=== PATIENT | female | born 1990 ===

== ENCOUNTER 2017-03-19 17:52 | Emergency (ER) | payer SELFPAY ==
[2017-03-19 18:00] VITALS: BMI 31.0
[2017-03-19 18:04] VITALS: BP 115/74; PULSE 94; RESP 16; TEMP 99; O2SAT 98
--- NOTE | 2017-03-19 20:08 | ED PDOC ---
Arrival/HPI - General Chief Complaint: Finger,Hand,&Wrist Time Seen by Provider: 03/19/17 18:55 Historian: Patient - History of Present Illness Narrative History of Present Illness (Text): 03/19/17 20:16 26yr old female with right wrist pain s/p injury. pt states yesterday she was pulling a heavy object with her right wrist and developed pain in the right wrist. No medications have been taken for pain at home. Patient is complaining of pain along the volar aspect of the entire wrist. She denies numbness weakness or tingling in the extremities. Patient complaining of pain with range of motion of the wrist. Patient states pain worsens today. Symptom Onset: Gradual Symptom Course: Worsening Quality: Aching Severity Level: 5 Past Medical History - Provider Review Nursing Documentation Reviewed: Yes - Travel History Have you recently traveled outside [place] w/in the past 3 mons?: No - Infectious Disease Hx of Infectious Diseases: None - Tetanus Immunization Tetanus Immunization: Unknown - Cardiac Hx Cardiac Disorders: No - Pulmonary Hx Asthma: Yes - Neurological Hx Neurological Disorder: No - HEENT Hx HEENT Disorder: No - Renal Hx Renal Disorder: No - Endocrine/Metabolic Hx Endocrine Disorders: No - Hematological/Oncological Hx Blood Disorders: No - Integumentary Hx Dermatological Disorder: No - Gastrointestinal Hx Gastrointestinal Disorders: No - Genitourinary/Gynecological Hx Genitourinary Disorders: No - Psychiatric Hx Anxiety: Yes Hx Depression: Yes Hx Substance Use: No - Surgical History Hx Cholecystectomy: Yes - Anesthesia Hx Anesthesia: Yes Hx Anesthesia Reactions: No Family/Social History - Physician Review Nursing Documentation Reviewed: Yes Family/Social History: Unknown Family HX Smoking Status: Light Smoker < 10 Cigarettes Daily Hx Alcohol Use: No Hx Substance Use: No Allergies/Home Meds Allergies/Adverse Reactions: Allergies No Known Allergies Allergy (Verified 06/21/16 11:50) Review of Systems - Review of Systems Constitutional: absent: Fatigue, Fevers Respiratory: absent: SOB, Cough Cardiovascular: absent: Chest Pain, Palpitations Gastrointestinal: absent: Abdominal Pain, Nausea, Vomiting Musculoskeletal: Arthralgias (Right wrist pain) Skin: absent: Rash, Pruritis Neurological: absent: Headache, Dizziness Psychiatric: absent: Anxiety, Depression Physical Exam Vital Signs Reviewed: Yes Vital Signs Temp Pulse Resp BP Pulse Ox 03/19/17 17:52 99 F 94 H 16 115/74 98 Temperature: Afebrile Blood Pressure: Normal Pulse: Regular Respiratory Rate: Normal Appearance: Positive for: Well-Appearing, Non-Toxic, Comfortable Pain Distress: None Mental Status: Positive for: Alert and Oriented X 3 - Systems Exam Head: Present: Atraumatic Mouth: Present: Moist Mucous Membranes Neck: Present: Normal Range of Motion Respiratory/Chest: Present: Clear to Auscultation, Good Air Exchange. No: Respiratory Distress, Accessory Muscle Use Cardiovascular: Present: Regular Rate and Rhythm, Normal S1, S2. No: Murmurs Upper Extremity: Present: NORMAL PULSES, Tenderness (Right wrist: There is tenderness noted over the volar aspect of the wrist. There is limited ROM of the wrist due to pain. No snuffbox tenderness. Sensation and distal pulses intact. Full range of motion of the hand with pain. Refill less than 2 no erythema no edema no ecchymosis. No warmth), Neurovascularly Intact, Capillary Refill < 2s. No: Normal ROM, Swelling, Erythema, Deformity Medical Decision Making ED Course and Treatment: 03/19/17 21:22 Patient nontoxic well-appearing in no distress with stable vital signs X-rays of the right wrist: No fracture motrin po Patient placed in Velcro volar splint. I discussed all results with patient advised to followup with the orthopedist for the next 2 days. Return if symptoms worsen persist or new symptoms develop i advised the patient that although the xrays show no fracture; there is still a possibility for ligamentous or tendon injury the patient must see the orthopedist for further evaluation. Patient verbalizes understanding of discharge instructions and need for immediate followup. Impression: Wrist pain Motrin every 6 hours as needed for pain He was wrist splint Rest, ice, compression, elevation Followup with the orthopedist within the next 2 days Followup with primary care physician within the next 2 days Return if any other concerning symptoms develop - RAD Interpretation Radiology Orders: 03/19/17 18:55 WRIST, RIGHT 3 VIEWS [RAD] Stat - Medication Orders Current Medication Orders: Discontinued Medications Ketorolac Tromethamine (Toradol) 60 mg IM STAT STA Stop: 03/19/17 18:56 Last Admin: 03/19/17 19:08 Dose: 60 mg Disposition/Present on Arrival - Present on Arrival Any Indicators Present on Arrival: No History of DVT/PE: No History of Uncontrolled Diabetes: No Urinary Catheter: No History of Decub. Ulcer: No History Surgical Site Infection Following: None - Disposition Have Diagnosis and Disposition been Completed?: Yes Diagnosis: Wrist pain Disposition: HOME/ ROUTINE Disposition Time: 19:40 Patient Plan: Discharge Condition: GOOD Discharge Instructions (ExitCare): Wrist Injury (ED), Arthralgia (ED) Additional Instructions: Motrin every 6 hours as needed for pain Use wrist splint Rest, ice, compression, elevation Followup with the orthopedist within the next 2 days Followup with primary care physician within the next 2 days Return if any other concerning symptoms develop Prescriptions: Ibuprofen [Motrin] 600 mg PO Q6H PRN #20 tab PRN Reason: pain/fever reduction Referrals: Vipul Ortiz III, MD [Medical Doctor] - Follow up with primary [facility] [place] [Outside] - Follow up with primary Yelena Bishop MD [Staff Provider] - Follow up with primary Forms: [employer] ([place]), WORK NOTE
--- NOTE | 2017-03-20 12:37 | RAD ---
PROCEDURE: Right Wrist Radiographs. HISTORY: wrist injury COMPARISON: None. FINDINGS: BONES: Normal. No fracture. JOINTS: Normal. No dislocation. SOFT TISSUES: Normal. OTHER FINDINGS: None. IMPRESSION: No evidence of acute displaced fracture nor dislocation. If symptoms persist or occult fracture suspected clinically recommend repeat radiographs in 5-10 days as most fractures should become radiographically evident in this timeframe. .
== END 2017-03-19 20:06 | disposition home or self-care (01) ==
LOC: ED 17:52
DX: M25.531 Pain in right wrist (principal)
CPT/HCPCS: 29260; 73110; 96372; 99283; J1885

== ENCOUNTER 2017-05-03 04:20 | Emergency (ER) | payer MEDICAID ==
[2017-05-03 04:21] VITALS: BMI 31.0
[2017-05-03] MEDS ORDERED: Sodium Chloride 0.9% 1,000 ML IV STA (04:37)
[2017-05-03 04:38] VITALS: RESP 18; TEMP 98.3; O2SAT 99
--- NOTE | 2017-05-03 04:41 | ED PDOC ---
Arrival/HPI - General Historian: Patient - History of Present Illness Time/Duration: Prior to Arrival Symptom Onset: Sudden Symptom Course: Unchanged Quality: Stabbing Severity Level: Moderate, Severe Activities at Onset: Rest Context: Home <Dinora Nettles - Last Filed: 05/03/17 05:05> <Wilmer Grajeda - Last Filed: 05/03/17 19:18> - General Chief Complaint: Abdominal Pain Time Seen by Provider: 05/03/17 04:27 - History of Present Illness Narrative History of Present Illness (Text): 05/03/17 04:38 26F w/PMH sig for asthma, depression/anxiety evaluated for abdominal pain x 1 hr. Pain is suprapubic, radiates to mid & left low back, sharp/stabbing, constant, severe, woke her up from sleep. Denies taking anything for pain at home. Reports back pain started at 9pm on day prior to evaluation. Admits to nausea, urinary frequency, urinary urgency, dysuria and diarrhea. Denies emesis , F & C, [place], recent URI symptoms, chest pain, SOB, other complaints. PMH: asthma, depression anxiety, hx UTIs PSH: Cholecystectomy, x 3 All: NKDA SH: Denies ETOH or illicit drug use, admits to tobacco use #3 /day x 5 yrs PMD: Denies LMP: September 2010, on Dia (Dinora Nettles) Past Medical History - Provider Review Nursing Documentation Reviewed: Yes - Infectious Disease Hx of Infectious Diseases: None - Tetanus Immunization Tetanus Immunization: Unknown - Cardiac Hx Cardiac Disorders: No - Pulmonary Hx Asthma: Yes - Neurological Hx Neurological Disorder: No - HEENT Hx HEENT Disorder: No - Renal Hx Renal Disorder: No - Endocrine/Metabolic Hx Endocrine Disorders: No - Hematological/Oncological Hx Blood Disorders: No - Integumentary Hx Dermatological Disorder: No - Gastrointestinal Hx Gastrointestinal Disorders: No - Genitourinary/Gynecological Hx Genitourinary Disorders: No - Psychiatric Hx Anxiety: Yes Hx Depression: Yes Hx Substance Use: No - Surgical History Hx Cholecystectomy: Yes - Anesthesia Hx Anesthesia: Yes Hx Anesthesia Reactions: No <Dinora Nettles - Last Filed: 05/03/17 05:05> Family/Social History - Physician Review Nursing Documentation Reviewed: Yes Family/Social History: No Known Family HX Smoking Status: Light Smoker < 10 Cigarettes Daily Hx Alcohol Use: No Hx Substance Use: No <Dinora Nettles - Last Filed: 05/03/17 05:05> Allergies/Home Meds <Dinora Nettles - Last Filed: 05/03/17 05:05> <Wilmer Grajeda - Last Filed: 05/03/17 19:18> Allergies/Adverse Reactions: Allergies No Known Allergies Allergy (Verified 06/21/16 11:50) Review of Systems - Physician Review All systems were reviewed & negative as marked: Yes - Review of Systems Constitutional: Normal. absent: Fevers Eyes: Normal. absent: Vision Changes ENT: Normal. absent: Rhinorrhea Respiratory: Normal. absent: SOB Cardiovascular: Normal. absent: Chest Pain Gastrointestinal: Abdominal Pain, Diarrhea, Nausea. absent: Normal, Constipation, Vomiting, Hematochezia, Hematemesis Genitourinary Female: Dysuria, Frequency, Urine Output Changes. absent: Normal , Hematuria, Vaginal Discharge Musculoskeletal: Back Pain. absent: Normal Skin: Normal. absent: Rash Neurological: Normal. absent: Headache Endocrine: Polyuria. absent: Normal <Dinora Nettles - Last Filed: 05/03/17 05:05> Physical Exam Appearance: Positive for: Well-Appearing, Comfortable Pain Distress: Mild Mental Status: Positive for: Alert and Oriented X 3 - Systems Exam Head: Present: Atraumatic, Normocephalic Extroacular Muscles: Present: EOMI Conjunctiva: Present: Normal Mouth: Present: Moist Mucous Membranes Nose (External): Present: Atraumatic Neck: Present: Normal Range of Motion Respiratory/Chest: Present: Clear to Auscultation, Good Air Exchange. No: Respiratory Distress, Accessory Muscle Use Cardiovascular: Present: Regular Rate and Rhythm, Normal S1, S2. No: Murmurs Abdomen: Present: Tenderness (RLQ, epigastric), Normal Bowel Sounds, Guarding ( over epigastrum, RLQ). No: Distention, Peritoneal Signs, Rebound, Scars Back: Present: Normal Inspection, Paraspinal Tenderness (Left lower back). No: CVA Tenderness Upper Extremity: Present: Normal Inspection. No: Cyanosis, Edema Lower Extremity: Present: Normal Inspection. No: Edema Neurological: Present: GCS=15, CN II-XII Intact, Speech Normal Skin: Present: Warm, Dry, Normal Color. No: Rashes Psychiatric: Present: Alert, Oriented x 3, Normal Insight, Normal Concentration <Dinora Nettles - Last Filed: 05/03/17 05:05> Vital Signs Temp Pulse Resp BP Pulse Ox 05/03/17 07:38 72 18 106/62 99 05/03/17 04:38 98.3 F 83 18 135/83 99 Medical Decision Making <Dinora Nettles - Last Filed: 05/03/17 05:05> - Transfer of Care Patient signed out to Dr:: nohemi adame and dispo <Wilmer Grajeda - Last Filed: 05/03/17 19:18> ED Course and Treatment: 05/03/17 04:44 Pt seen/evaluted, case DW ED attending, will evaluate for appendicitis vs. cystitis vs. nephrolithiasis (Dinora Nettles) - Lab Interpretations Lab Results: 05/03/17 04:50 05/03/17 04:50 Lab Results 05/03/17 04:50: Sodium 140, Potassium 4.1, Chloride 106, Carbon Dioxide 22, Anion Gap 16, BUN 14, Creatinine 0.6 L, Est GFR ( Amer) > 60, Est GFR ( Non-Af Amer) > 60, Random Glucose 99, Calcium 9.6, Total Bilirubin 0.5, AST 22, ALT 25, Alkaline Phosphatase 71, Total Protein 7.1, Albumin 4.3, Globulin 2.7, Albumin/Globulin Ratio 1.6, Lipase 76 05/03/17 04:50: Urine Color Yellow, Urine Appearance Sl cloudy, Urine pH 6.5, Ur Specific [place] 1.020, Urine Protein Negative, Urine Glucose (UA) Negative, Urine Ketones Negative, Urine Blood Negative, Urine Nitrate Negative, Urine Bilirubin Negative, Urine Urobilinogen 1.0 H, Ur Leukocyte Esterase Trace H, Urine RBC 0 - 2, Urine WBC 1 - 3, Ur Epithelial Cells 1 - 3, Urine Bacteria Trace 05/03/17 04:50: WBC 11.6 H, RBC 4.58, Hgb 14.5, Hct 41.5, MCV 90.6, MCH 31.7, MCHC 34.9, RDW 12.2, Plt Count 298, MPV 10.3, Gran % 66.4, Lymph % (Auto) 25.4, [place] % (Auto) 6.3 H, Eos % (Auto) 1.6, Baso % (Auto) 0.3, Gran # 7.69 H, Lymph # 2.9, [place] # 0.7 H, Eos # 0.2, Baso # 0.03 - RAD Interpretation Radiology Orders: 05/03/17 05:02 ABD & PELVIS IV CONTRAST ONLY [CT] Stat 05/03/17 06:23 TRANSVAGINAL [US] Stat - Medication Orders Current Medication Orders: Discontinued Medications Hydromorphone HCl (Dilaudid) 0.5 mg IVP STAT STA Stop: 05/03/17 05:14 Last Admin: 05/03/17 05:26 Dose: 0.5 mg MAR Pain Assessment Document 05/03/17 05:26 SS (Rec: 05/03/17 05:26 SS [id number]) Pain Reassessment Is this a pain reassessment? Yes Sleep Is patient sleeping during reassessment? No Presence of Pain Presence of Pain Yes Pain Scale Used Pain Scale Used Numeric Location Left, Right or Bilateral Right Upper or Lower Lower Pain Location Body Site Abdomen Description Description Constant Intensity of Pain at present 9 IVP Administration Document 05/03/17 05:26 SS (Rec: 05/03/17 05:26 SS [id number]) Charges for Administration # of IVP Administrations 1 Sodium Chloride (Sodium Chloride 0.9%) 1,000 mls @ 999 mls/hr IV .Q1H1M STA Stop: 05/03/17 05:37 Last Admin: 05/03/17 04:58 Dose: 999 mls/hr eMAR Start Stop Document 05/03/17 04:58 SS (Rec: 05/03/17 04:58 SS [id number]) Intravenous Solution Start Date 05/03/17 Start Time 04:58 End Date 05/03/17 End time 05:58 Total Infusion Time 60 Ketorolac Tromethamine (Toradol) 15 mg IVP STAT STA Stop: 05/03/17 04:38 Last Admin: 05/03/17 04:58 Dose: 15 mg MAR Pain Assessment Document 05/03/17 04:58 SS (Rec: 05/03/17 04:59 SS [id number]) Pain Reassessment Is this a pain reassessment? No Sleep Is patient sleeping during reassessment? 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 / has examined the patient and agrees with the treatment plan. <Wilmer Grajeda - Last Filed: 05/03/17 19:18> Disposition/Present on Arrival - Present on Arrival Any Indicators Present on Arrival: No History of DVT/PE: No History of Uncontrolled Diabetes: No Urinary Catheter: No History of Decub. Ulcer: No History Surgical Site Infection Following: None <Dinora Nettles - Last Filed: 05/03/17 05:05> - Present on Arrival Any Indicators Present on Arrival: No - Disposition Have Diagnosis and Disposition been Completed?: Yes Disposition Time: 07:00 <Wilmer Grajeda - Last Filed: 05/03/17 19:18> - Disposition Diagnosis: Abdominal pain Disposition: HOME/ ROUTINE Condition: GOOD Discharge Instructions (ExitCare): Acute Abdominal Pain (ED) Additional Instructions: Please follow up with a primary doctor and with your OBGYN doctor. Return to the ER for any worsening symptoms, fever, or for any other concerns. Prescriptions: Ibuprofen [Motrin Tab] 600 mg PO Q6H PRN #10 tab PRN Reason: Pain, Moderate (4-7) [place]errals: [facility] [place] - Follow up with primary Forms: [employer] (Kiswahili), WORK NOTE
[2017-05-03 05:13] LABS: PH,URINE 6.5 (4.7-8.0); URINE BILIRUBIN NEGATIVE (NEGATIVE); URINE BLOOD NEGATIVE (NEGATIVE); URINE GLUCOSE (UA) NEGATIVE (NEGATIVE); URINE KETONE NEGATIVE (NEGATIVE); URINE LEUKOCYTE ESTERASE TRACE Leu/uL (NEGATIVE); URINE PROTEIN NEGATIVE mg/dL (<30 mg/dL)
[2017-05-03] MEDS ORDERED: HYDROmorphone 0.5 mg/0.5 ml ISec IVP STA (05:13)
[2017-05-03 05:17] LABS: BASO # 0.03 K/mm3 (0.0-2.0); BASO % 0.3 % (0.0-3.0); EOS # 0.2 (0.0-0.7); EOS % 1.6 % (1.5-5.0); GRAN # 7.69 (1.4-6.5); GRAN % 66.4 % (50.0-68.0); HEMATOCRIT 41.5 % (36.0-48.0); LYMPH # 2.9 (1.2-3.4); LYMPH % 25.4 % (22.0-35.0); MEAN CELL VOLUME 90.6 fl (80.0-105.0); MEAN CORPUSCULAR HEMOGLOBIN 31.7 pg (25.0-35.0); MEAN CORPUSCULAR HGB CONC 34.9 g/dl (31.0-37.0); MEAN PLATELET VOLUME 10.3 fl (7.0-11.0); MONO # 0.7 (0.1-0.6); MONO % 6.3 % (1.0-6.0); RED CELL DISTRIBUTION WIDTH 12.2 % (11.5-14.5); WHITE BLOOD COUNT 11.6 10^3/ul (4.5-11.0)
[2017-05-03 05:23] LABS: ALB/GLOB RATIO 1.6 (1.1-1.8); ALKALINE PHOSPHATASE 71 U/L (38-126); ALT/SGPT 25 U/L (7-56); AST/SGOT 22 U/L (14-36); BILIRUBIN,TOTAL 0.5 mg/dL (0.2-1.3); BLOOD UREA NITROGEN 14 mg/dL (7-21); CALCIUM 9.6 mg/dL (8.4-10.5); CARBON DIOXIDE 22 mmol/L (21-33); CHLORIDE 106 mmol/L (98-107); GFR AFRICAN-AMERICAN > 60; GLUCOSE,RANDOM 99 mg/dL (70-110); LIPASE 76 U/L (23-300); POTASSIUM 4.1 mmol/L (3.6-5.0); SODIUM 140 mmol/L (132-148); TOTAL PROTEIN 7.1 g/dL (5.8-8.3)
[2017-05-03] MEDS ORDERED: Iohexol 350 MG/100 ML VIAL ONE (05:38)
[2017-05-03 05:46] LABS: URINE APPEARANCE SL CLOUDY (CLEAR); URINE COLOR YELLOW (YELLOW)
[2017-05-03 05:49] LABS: URINE BACTERIA TRACE (NEG); URINE RBC 0 - 2 /hpf (0-2)
--- NOTE | 2017-05-03 06:22 | CT ---
EXAM: CT Abdomen and Pelvis With Intravenous Contrast CLINICAL HISTORY: 26 years old, female; Pain; Abdominal pain; Periumbilical; Prior surgery; Surgery date: 6+ months; Additional info: Ab pain TECHNIQUE: Axial computed tomography images of the abdomen and pelvis with intravenous contrast. All CT scans at this facility use one or more dose reduction techniques, viz.: automated exposure control; ma/kV adjustment per patient size (including targeted exams where dose is matched to indication; i.e. head); or iterative reconstruction technique. Coronal and sagittal reformatted images were created and reviewed. CONTRAST: 96 mL of OMNI 350 administered intravenously. COMPARISON: US - PELVIS ULTRASOUND 2015-07-20 11:30 FINDINGS: Lower thorax: No acute findings. ABDOMEN: Liver: Small calcification. 0.5 x 0.4 x 0.5 cm enhancing lesion. Gallbladder and bile ducts: No calcified stones. No ductal dilation. Pancreas: No ductal dilation. No mass. Spleen: No splenomegaly. Adrenals: No mass. Kidneys and ureters: No mass. No hydronephrosis. Stomach and bowel: No definite mural thickening. No obstruction. Appendix: Normal caliber. No inflammation. PELVIS: Bladder: Unremarkable. Reproductive: IUD. ABDOMEN and PELVIS: Intraperitoneal space: No significant fluid collection. No free air. Bones/joints: No acute fracture. Soft tissues: Tiny umbilical hernia containing fat. Vasculature: Unremarkable. No aneurysm. Lymph nodes: No pathologically enlarged lymph nodes. IMPRESSION: 1. No definite acute intraabdominal abnormality. 2. Liver lesion, nonspecific but likely hemangioma. Followup if clinically warranted. 3. Incidental/non-acute findings are described above.
--- NOTE | 2017-05-03 07:27 | US ---
EXAM: US Pelvis, Transvaginal EXAM DATE/TIME: 05/03/2017 6:23 AM CLINICAL HISTORY: 26 years old, female; Pain; Pelvic pain; Additional info: Ab pain TECHNIQUE: Real-time transvaginal pelvic ultrasound (complete) with image documentation. Transvaginal imaging was used for better evaluation of the endometrium and adnexa. COMPARISON: CT - ABD PELVIS IV CONTRAST ONLY 2017-05-03 05:46 FINDINGS: Uterus/cervix: Uterus measures 8.8 x 4.3 x 4.9 cm. IUD centrally position. Visualized endometrium measures 1.2 cm. No myometrial mass. Right ovary: Limited visualization right ovary, measures 3.4 x 2.6 x 2.9 cm. Normal blood flow. Left ovary: Not visualized. Free fluid: No free fluid. Bladder: Empty bladder which cannot be evaluated with this probe. IMPRESSION: IUD. Nonvisualization of left ovary, otherwise unremarkable examination.
[2017-05-03 07:39] VITALS: BP 106/62; PULSE 72
--- NOTE | 2017-05-03 08:16 | ED PDOC ---
Physical Exam Vital Signs Temp Pulse Resp BP Pulse Ox 05/03/17 07:38 72 18 106/62 99 05/03/17 04:38 98.3 F 83 18 135/83 99 Medical Decision Making ED Course and Treatment: 05/03/17 07:00 Case was signed out to me by Dr. Grajeda and currently pending ultrasound report. 05/03/17 07:30 Ultrasound: Creator : JOHN ORTEGA COMPARISON: CT - ABD PELVIS IV CONTRAST ONLY 2017-05-03 05:46 FINDINGS: Uterus/cervix: Uterus measures 8.8 x 4.3 x 4.9 cm. IUD centrally position. Visualized endometrium measures 1.2 cm. No myometrial mass. Right ovary: Limited visualization right ovary, measures 3.4 x 2.6 x 2.9 cm. Normal blood flow. Left ovary: Not visualized. Free fluid: No free fluid. Bladder: Empty bladder which cannot be evaluated with this probe. IMPRESSION: IUD. Nonvisualization of left ovary, otherwise unremarkable examination. 05/03/17 07:50 On evaluation patient is resting quietly playing on iPad. patient is in no distress and reports pain is mainly on the right lower abdomen side. Results/ plan was discussed with patient. Follow up and return precautions advised. - Lab Interpretations Lab Results: 05/03/17 04:50 05/03/17 04:50 Lab Results 05/03/17 04:50: Sodium 140, Potassium 4.1, Chloride 106, Carbon Dioxide 22, Anion Gap 16, BUN 14, Creatinine 0.6 L, Est GFR ( Amer) > 60, Est GFR ( Non-Af Amer) > 60, Random Glucose 99, Calcium 9.6, Total Bilirubin 0.5, AST 22, ALT 25, Alkaline Phosphatase 71, Total Protein 7.1, Albumin 4.3, Globulin 2.7, Albumin/Globulin Ratio 1.6, Lipase 76 05/03/17 04:50: Urine Color Yellow, Urine Appearance Sl cloudy, Urine pH 6.5, Ur Specific [place] 1.020, Urine Protein Negative, Urine Glucose (UA) Negative, Urine Ketones Negative, Urine Blood Negative, Urine Nitrate Negative, Urine Bilirubin Negative, Urine Urobilinogen 1.0 H, Ur Leukocyte Esterase Trace H, Urine RBC 0 - 2, Urine WBC 1 - 3, Ur Epithelial Cells 1 - 3, Urine Bacteria Trace 05/03/17 04:50: WBC 11.6 H, RBC 4.58, Hgb 14.5, Hct 41.5, MCV 90.6, MCH 31.7, MCHC 34.9, RDW 12.2, Plt Count 298, MPV 10.3, Gran % 66.4, Lymph % (Auto) 25.4, [place] % (Auto) 6.3 H, Eos % (Auto) 1.6, Baso % (Auto) 0.3, Gran # 7.69 H, Lymph # 2.9, [place] # 0.7 H, Eos # 0.2, Baso # 0.03 I have reviewed the lab results: Yes - RAD Interpretation Radiology Orders: 05/03/17 05:02 ABD & PELVIS IV CONTRAST ONLY [CT] Stat 05/03/17 06:23 TRANSVAGINAL [US] Stat Clinical Laboratory Medical Director: Radiologist - Medication Orders Current Medication Orders: Discontinued Medications Hydromorphone HCl (Dilaudid) 0.5 mg IVP STAT STA Stop: 05/03/17 05:14 Last Admin: 05/03/17 05:26 Dose: 0.5 mg MAR Pain Assessment Document 05/03/17 05:26 SS (Rec: 05/03/17 05:26 SS [id number]) Pain Reassessment Is this a pain reassessment? Yes Sleep Is patient sleeping during reassessment? No Presence of Pain Presence of Pain Yes Pain Scale Used Pain Scale Used Numeric Location Left, Right or Bilateral Right Upper or Lower Lower Pain Location Body Site Abdomen Description Description Constant Intensity of Pain at present 9 IVP Administration Document 05/03/17 05:26 SS (Rec: 05/03/17 05:26 SS [id number]) Charges for Administration # of IVP Administrations 1 Sodium Chloride (Sodium Chloride 0.9%) 1,000 mls @ 999 mls/hr IV .Q1H1M STA Stop: 05/03/17 05:37 Last Admin: 05/03/17 04:58 Dose: 999 mls/hr eMAR Start Stop Document 05/03/17 04:58 SS (Rec: 05/03/17 04:58 SS [id number]) Intravenous Solution Start Date 05/03/17 Start Time 04:58 End Date 05/03/17 End time 05:58 Total Infusion Time 60 Ketorolac Tromethamine (Toradol) 15 mg IVP STAT STA Stop: 05/03/17 04:38 Last Admin: 05/03/17 04:58 Dose: 15 mg MAR Pain Assessment Document 05/03/17 04:58 SS (Rec: 05/03/17 04:59 SS [id number]) Pain Reassessment Is this a pain reassessment? No Sleep Is patient sleeping during reassessment? No Presence of Pain Presence of Pain Yes Pain Scale Used Pain Scale Used Numeric Location Left, Right or Bilateral Right Upper or Lower Lower Pain Location Body Site Abdomen Description Description Constant Intensity of Pain at present 10 Pain Behavior Grasping Site Rubbing Site IVP Administration Document 05/03/17 04:58 SS (Rec: 05/03/17 04:59 SS [id number]) Charges for Administration # of IVP Administrations 1 - Scribe Statement The provider has reviewed the documentation as recorded by the Scribe Trixie Hussein Provider Scribe Attestation: All medical record entries made by the Scribe were at my direction and personally dictated by me. I have reviewed the chart and agree that the record accurately reflects my personal performance of the history, physical exam, medical decision making, and the department course for this patient. I have also personally directed, reviewed, and agree with the discharge instructions and disposition. Disposition/Present on Arrival - Present on Arrival Any Indicators Present on Arrival: No History of DVT/PE: No History of Uncontrolled Diabetes: No Urinary Catheter: No History of Decub. Ulcer: No History Surgical Site Infection Following: None - Disposition Have Diagnosis and Disposition been Completed?: Yes Diagnosis: Abdominal pain Disposition: HOME/ ROUTINE Disposition Time: 08:24 Condition: GOOD Discharge Instructions (ExitCare): Acute Abdominal Pain (ED) Additional Instructions: Please follow up with a primary doctor and with your OBGYN doctor. Return to the ER for any worsening symptoms, fever, or for any other concerns. Prescriptions: Ibuprofen [Motrin Tab] 600 mg PO Q6H PRN #10 tab PRN Reason: Pain, Moderate (4-7) Referrals: [facility] [place] [Outside] - Follow up with primary Forms: [employer] (Portuguese), WORK NOTE
== END 2017-05-03 08:24 | disposition home or self-care (01) ==
LOC: ED 04:20
DX: R10.9 Unspecified abdominal pain (principal); F17.210 Nicotine dependence, cigarettes, uncomplicated
CPT/HCPCS: 74177; 76830; 80053; 81001; 83690; 85025; 87086; 96361; 96374; 96376; 99284; J1170; J1885; J7040; Q9967

== ENCOUNTER 2017-06-15 00:10 | Emergency (ER) | payer MEDICAID, OTHER ==
[2017-06-15 00:11] VITALS: BMI 31.0
[2017-06-15 00:43] VITALS: BP 109/73; PULSE 93; RESP 18; TEMP 98.2; O2SAT 99
--- NOTE | 2017-06-15 01:14 | ED PDOC ---
Arrival/HPI - General Chief Complaint: Upper Extremity Problem/Injury Time Seen by Provider: 06/15/17 00:46 Historian: Patient - History of Present Illness Narrative History of Present Illness (Text): 06/15/17 01:52 26 yo F presents with numbness to the distal L 2nd digit, s/p laceration with a knife which was repaired in this hospital 1 month ago. States that she did not f /u with any specialist after her visit here. Denies any redness, swelling, new trauma / injury, decrease in ROM. Has no additional complaints. Past Medical History - Provider Review Nursing Documentation Reviewed: Yes - Infectious Disease Hx of Infectious Diseases: None - Tetanus Immunization Tetanus Immunization: Unknown - Reproductive Currently : No - Cardiac Hx Cardiac Disorders: No - Pulmonary Hx Asthma: Yes - Neurological Hx Neurological Disorder: No - HEENT Hx HEENT Disorder: No - Renal Hx Renal Disorder: No - Endocrine/Metabolic Hx Endocrine Disorders: No - Hematological/Oncological Hx Blood Disorders: No - Integumentary Hx Dermatological Disorder: No - Musculoskeletal/Rheumatological Hx Musculoskeletal Disorders: No - Gastrointestinal Hx Gastrointestinal Disorders: No - Genitourinary/Gynecological Hx Genitourinary Disorders: No - Psychiatric Hx Anxiety: Yes Hx Depression: Yes Hx Substance Use: No - Surgical History Hx Section: Yes (x3) Hx Cholecystectomy: Yes - Anesthesia Hx Anesthesia: Yes Hx Anesthesia Reactions: No Hx Malignant Hyperthermia: No Family/Social History - Physician Review Nursing Documentation Reviewed: Yes Family/Social History: Unknown Family HX Smoking Status: Light Smoker < 10 Cigarettes Daily Hx Alcohol Use: No Hx Substance Use: No Allergies/Home Meds Allergies/Adverse Reactions: Allergies No Known Allergies Allergy (Verified 06/15/17 00:38) Home Medications: Home Meds Medication Instructions Recorded Confirmed Levonorgestrel [Mirena] 1 each IY CONT 06/15/17 06/15/17 Review of Systems - Review of Systems Constitutional: absent: Fatigue, Weight Change, Fevers Musculoskeletal: Other (+paresthesia to the L 2nd digit). absent: Arthralgias, Back Pain, Neck Pain Skin: Laceration. absent: Rash, Pruritis, Skin Lesions Physical Exam Vital Signs Reviewed: Yes Vital Signs Temp Pulse Resp BP Pulse Ox 06/15/17 00:38 98.2 F 93 H 18 109/73 99 06/15/17 00:11 98.6 F 70 17 110/80 100 Temperature: Afebrile Blood Pressure: Normal Pulse: Regular Respiratory Rate: Normal Appearance: Positive for: Well-Appearing, Non-Toxic, Comfortable Pain Distress: None Mental Status: Positive for: Alert and Oriented X 3 - Systems Exam Upper Extremity: Present: Normal Inspection, Normal ROM, NORMAL PULSES, Capillary Refill < 2s, Norm 2-Pt Discrimination, Other (+decrease in sensation to the distal aspect of the L 2nd digit). No: Edema, Tenderness, Swelling, Erythema, Temperature Abnormalties, Deformity Neurological: Present: GCS=15, CN II-XII Intact Skin: Present: Warm, Dry, Normal Color. No: Rashes Medical Decision Making ED Course and Treatment: 06/15/17 01:55 26 yo F presents with numbness to the distal L 2nd digit, s/p laceration with a knife which was repaired in this hospital 1 month ago. Patient advised that she must f/u with referral physician provided for further evaluation. Patient states she fully agrees with and understands discharge instructions. States that she agrees with the plan and disposition. Verbalized and repeated discharge instructions and plan. I have given the patient opportunity to ask any additional questions. - PA / MEDICAL REFERRAL COORDINATOR / Resident Statement / has reviewed & agrees with the documentation as recorded. Disposition/Present on Arrival - Present on Arrival Any Indicators Present on Arrival: No History of DVT/PE: No History of Uncontrolled Diabetes: No Urinary Catheter: No History of Decub. Ulcer: No History Surgical Site Infection Following: None - Disposition Have Diagnosis and Disposition been Completed?: Yes Diagnosis: Paresthesia Disposition: HOME/ ROUTINE Disposition Time: 01:00 Patient Plan: Discharge Condition: STABLE Discharge Instructions (ExitCare): Paresthesia (ED) Print Language: MALAWIAN Additional Instructions: You must follow up with referral physician provided for further evaluation in 2 days without fail. Referrals: Behance Cecilia Mccain, [Primary Care Provider] - Follow up with primary Volodymyr Ybarra DO [Staff Provider] - Follow up with primary Forms: [employer] (Swazi), WORK NOTE
== END 2017-06-15 01:25 | disposition home or self-care (01) ==
LOC: ED 00:10
DX: R20.2 Paresthesia of skin (principal); F17.210 Nicotine dependence, cigarettes, uncomplicated

== ENCOUNTER 2018-02-05 03:12 | Emergency (ER) | payer OTHER, MEDICAID ==
[2018-02-05 03:29] VITALS: RESP 16; TEMP 98.6; O2SAT 99
[2018-02-05 03:36] VITALS: BMI 34.0
[2018-02-05] MEDS ORDERED: Albuterol-Ipratrop 3 mg / 0.5 (3 ml) UD IH STA (03:42)
--- NOTE | 2018-02-05 03:59 | ED PDOC ---
Arrival/HPI - General Chief Complaint: Cough, Cold, Congestion Time Seen by Provider: 02/05/18 03:13 Historian: Patient - History of Present Illness Narrative History of Present Illness (Text): 02/05/18 03:34 A 27 year old female, whose past medical history includes asthma, depression and anxiety, presents to the emergency department complaining of sore throat, congestion cough, and asthma. Patient reports she use an inhaler at home and she last used her inhaler prior to arrival. Patient denies any fever, chills, chest pain, shortness of breath, nausea, vomiting, back pain, neck pain, headache, dizziness, or any other complaints. PMD: Dr. Nneka Izaguirre Time/Duration: Other (2 days ago) Symptom Onset: Gradual Symptom Course: Unchanged Context: Home Past Medical History - Provider Review Nursing Documentation Reviewed: Yes - Infectious Disease Hx of Infectious Diseases: None - Tetanus Immunization Tetanus Immunization: Unknown - Cardiac Hx Cardiac Disorders: No - Pulmonary Hx Asthma: Yes - Neurological Hx Neurological Disorder: No - HEENT Hx HEENT Disorder: No - Renal Hx Renal Disorder: No - Endocrine/Metabolic Hx Endocrine Disorders: No - Hematological/Oncological Hx Blood Disorders: No - Integumentary Hx Dermatological Disorder: No - Musculoskeletal/Rheumatological Hx Musculoskeletal Disorders: No - Gastrointestinal Hx Gastrointestinal Disorders: No - Genitourinary/Gynecological Hx Genitourinary Disorders: No - Psychiatric Hx Anxiety: Yes Hx Depression: Yes Hx Substance Use: No - Surgical History Hx Cholecystectomy: Yes - Anesthesia Hx Anesthesia: Yes Hx Anesthesia Reactions: No Hx Malignant Hyperthermia: No Family/Social History - Physician Review Nursing Documentation Reviewed: Yes Family/Social History: Unknown Family HX Smoking Status: Light Smoker < 10 Cigarettes Daily Hx Alcohol Use: No Hx Substance Use: No Allergies/Home Meds Allergies/Adverse Reactions: Allergies No Known Allergies Allergy (Verified 02/05/18 03:36) Home Medications: Home Meds Medication Instructions Recorded Confirmed Albuterol HFA [Ventolin HFA 90 1 puff INH PRN PRN 02/05/18 02/05/18 mcg/actuation (8 g)] Alprazolam [Xanax] 0.5 mg PO PRN PRN 02/05/18 02/05/18 buPROPion [Wellbutrin] 75 mg PO PRN PRN 02/05/18 02/05/18 Review of Systems - Physician Review All systems were reviewed & negative as marked: Yes - Review of Systems Constitutional: Normal. absent: Fevers, Night Sweats Eyes: Normal ENT: Sore Throat. absent: Hearing Changes, Tinnitus, TMJ Pain, Rhinorrhea, Epistaxis, Sinus Congestion Respiratory: Cough (dry cough). absent: SOB, Sputum, Wheezing Cardiovascular: absent: Chest Pain Gastrointestinal: absent: Nausea, Vomiting Musculoskeletal: absent: Back Pain, Neck Pain Skin: Normal Neurological: Normal. absent: Headache, Dizziness Physical Exam Vital Signs Reviewed: Yes Vital Signs Temp Pulse Resp BP Pulse Ox 02/05/18 05:29 98 H 16 128/77 99 02/05/18 03:29 98.6 F 103 H 16 130/75 99 Temperature: Afebrile Blood Pressure: Normal Pulse: Tachycardic Respiratory Rate: Normal Appearance: Positive for: Well-Appearing, Non-Toxic, Comfortable Pain Distress: None Mental Status: Positive for: Alert and Oriented X 3 - Systems Exam Head: Present: Atraumatic, Normocephalic Pupils: Present: PERRL Extroacular Muscles: Present: EOMI Conjunctiva: Present: Normal Mouth: Present: Moist Mucous Membranes Pharnyx: Present: ERYTHEMA Neck: Present: Normal Range of Motion Respiratory/Chest: Present: Wheezes (Scattered wheezing). No: Clear to Auscultation, Good Air Exchange, Respiratory Distress, Accessory Muscle Use, Decreased Breath Sounds, Rales, Retracting, Rhonchi, Tachypneic, Tender to Palpation Cardiovascular: Present: Regular Rate and Rhythm, Normal S1, S2. No: Murmurs Abdomen: No: Tenderness, Distention, Peritoneal Signs Back: Present: Normal Inspection Upper Extremity: Present: Normal Inspection. No: Cyanosis, Edema Lower Extremity: Present: Normal Inspection. No: Edema Neurological: Present: GCS=15, CN II-XII Intact, Speech Normal Skin: Present: Warm, Dry, Normal Color. No: Rashes Psychiatric: Present: Alert, Oriented x 3, Normal Insight, Normal Concentration Medical Decision Making ED Course and Treatment: 02/05/18 03:38 Impression: 27 year old female, whose past medical history includes asthma, depression and anxiety, presents to the emergency department complaining of sore throat, congestion cough, and asthma. on inital exam, scattered whezing. Plan: -- Chest X-ray -- Duoneb -- Prednisone Tab -- Rapid Strep -- Reassess and disposition Prior Visits: Notes and results from previous visits were reviewed. Progress Notes: 02/05/18 05:21 pt reassesed. pt states she feels no improvement. i offered her additional treatment, and lab tests, including d dimer. she declines. she is aksing for immediate dc and will return with worsening. 02/05/18 05:24 Chest X-Ray reviewed, shows no acute findings. Interpreted by me. - Lab Interpretations Lab Results: Lab Results 02/05/18 04:05: Grp A Beta Strep Ag Negative - RAD Interpretation Radiology Orders: 02/05/18 03:42 CHEST TWO VIEWS (PA/LAT) [RAD] Stat - Medication Orders Current Medication Orders: Discontinued Medications Albuterol/Ipratropium (Duoneb 3 Mg/0.5 Mg (3 Ml) Ud) 3 ml IH STAT STA Stop: 02/05/18 03:43 Last Admin: 02/05/18 03:55 Dose: 3 ml Prednisone (Prednisone Tab) 50 mg PO STAT STA Stop: 02/05/18 03:43 Last Admin: 02/05/18 04:03 Dose: 50 mg - Scribe Statement Chelsie Dean All medical record entries made by the Scribe were at my direction and personally dictated by me. I have reviewed the chart and agree that the record accurately reflects my personal performance of the history, physical exam, medical decision making, and the department course for this patient. I have also personally directed, reviewed, and agree with the discharge instructions and disposition. Disposition/Present on Arrival - Present on Arrival Any Indicators Present on Arrival: No History of DVT/PE: No History of Uncontrolled Diabetes: No Urinary Catheter: No History of Decub. Ulcer: No History Surgical Site Infection Following: None - Disposition Have Diagnosis and Disposition been Completed?: No Diagnosis: Asthma, Dyspnea Disposition: HOME/ ROUTINE Disposition Time: 05:30 Condition: STABLE Discharge Instructions (ExitCare): Asthma in Adults, Shortness of Breath ( Dyspnea) Additional Instructions: you are declining lab tests, you are able to return to any er with any concern at any time. Prescriptions: Albuterol 0.083% [Albuterol 0.083% Inhal Viktoriya (2.5 mg/3 ml) UD] 2.5 mg IH Q4 PRN #20 neb PRN Reason: Wheezing Prednisone 50 mg PO DAILY #4 tab Referrals: [facility] [Outside] - [place] up with [place] [facility] [place] - Follow up with primary Forms: [employer] (Nigerien)
[2018-02-05 05:30] VITALS: BP 128/77; PULSE 98
--- NOTE | 2018-02-05 07:55 | RAD ---
Date of service: 02/05/2018 HISTORY: cough COMPARISON: No prior. TECHNIQUE: Chest PA and lateral FINDINGS: LUNGS: No active pulmonary disease. PLEURA: No significant pleural effusion identified. No pneumothorax apparent. CARDIOVASCULAR: Normal. OSSEOUS STRUCTURES: No significant abnormalities. VISUALIZED UPPER ABDOMEN: Normal. OTHER FINDINGS: None. IMPRESSION: No active disease.
== END 2018-02-05 05:30 | disposition home or self-care (01) ==
LOC: ED 03:12
DX: J45.909 Unspecified asthma, uncomplicated (principal); R06.00 Dyspnea, unspecified; F17.210 Nicotine dependence, cigarettes, uncomplicated

== ENCOUNTER 2018-05-18 23:40 | Emergency (ER) | payer MEDICAID, OTHER ==
[2018-05-19 00:01] VITALS: RESP 18; TEMP 98.4; O2SAT 100; BMI 32.5
[2018-05-19] MEDS ORDERED: Sodium Chloride 0.9% 1,000 ML IV STA (00:03)
--- NOTE | 2018-05-19 00:06 | ED PDOC ---
Arrival/HPI - General Historian: Patient - History of Present Illness Narrative History of Present Illness (Text): 05/19/18 00:03 27 y/o female, no significant pmh, nkda, LMP 03/28/2018, , c/o left lower pelvic pain and back pain x 1 day with no fall or trauma. Pt. stated that she is , never had sonogram perform, noted to have left lower pelvic pain yesterday and occasional morning sickness, no vaginal bleeding or discharge, no night sweat, no chest pain, no other medical or psychological complaints. <Eliazar Chamorro - Last Filed: 05/19/18 01:50> <Jose Martinez - Last Filed: 05/19/18 02:43> - General Chief Complaint: Abdominal Pain Past Medical History - Provider Review Nursing Documentation Reviewed: Yes - Infectious Disease Hx of Infectious Diseases: None - Tetanus Immunization Tetanus Immunization: Unknown - Cardiac Hx Cardiac Disorders: No - Pulmonary Hx Respiratory Disorders: Yes Hx Asthma: Yes - Neurological Hx Neurological Disorder: No - HEENT Hx HEENT Disorder: No - Renal Hx Renal Disorder: No - Endocrine/Metabolic Hx Endocrine Disorders: No - Hematological/Oncological Hx Blood Disorders: No - Integumentary Hx Dermatological Disorder: No - Musculoskeletal/Rheumatological Hx Musculoskeletal Disorders: No - Gastrointestinal Hx Gastrointestinal Disorders: No - Genitourinary/Gynecological Hx Genitourinary Disorders: No - Psychiatric Hx Psychophysiologic Disorder: Yes Hx Anxiety: Yes Hx Depression: Yes Hx Substance Use: No - Surgical History Hx Cholecystectomy: Yes - Anesthesia Hx Anesthesia: Yes Hx Anesthesia Reactions: No Hx Malignant Hyperthermia: No <Eliazar Chamorro - Last Filed: 05/19/18 01:50> Family/Social History - Physician Review Nursing Documentation Reviewed: Yes Family/Social History: Unknown Family HX Smoking Status: Light Smoker < 10 Cigarettes Daily Hx Alcohol Use: No Hx Substance Use: No <Eliazar Chamorro - Last Filed: 05/19/18 01:50> Allergies/Home Meds <Eliazar Chamorro - Last Filed: 05/19/18 01:50> <Jose Martinez - Last Filed: 05/19/18 02:43> Allergies/Adverse Reactions: Allergies No Known Allergies Allergy (Verified 05/18/18 23:57) Review of Systems - Review of Systems Constitutional: absent: Fatigue, Fevers Eyes: absent: Vision Changes ENT: absent: Hearing Changes Respiratory: absent: SOB, Cough Cardiovascular: absent: Chest Pain Gastrointestinal: Other (lt. lower pelvic pain). absent: Abdominal Pain, Diarrhea, Nausea, Vomiting Musculoskeletal: absent: Arthralgias, Back Pain Skin: absent: Rash, Pruritis Psychiatric: absent: Anxiety, Depression, Suicidal Ideation <Eliazar Chamorro - Last Filed: 05/19/18 01:50> Physical Exam Vital Signs Reviewed: Yes Vital Signs Temp Pulse Resp BP Pulse Ox 05/18/18 23:55 98.4 F 85 18 127/67 100 Temperature: Afebrile Blood Pressure: Normal Pulse: Regular Respiratory Rate: Normal Appearance: Positive for: Well-Appearing, Non-Toxic, Comfortable Pain Distress: Mild Mental Status: Positive for: Alert and Oriented X 3 - Systems Exam Head: Present: Atraumatic, Normocephalic Pupils: Present: PERRL Extroacular Muscles: Present: EOMI Conjunctiva: Present: Normal Mouth: Present: Moist Mucous Membranes Neck: Present: Normal Range of Motion Respiratory/Chest: Present: Clear to Auscultation, Good Air Exchange. No: Respiratory Distress, Accessory Muscle Use Cardiovascular: Present: Regular Rate and Rhythm, Normal S1, S2. No: Murmurs Abdomen: No: Tenderness, Distention, Peritoneal Signs Genitourinary/Pelvic Exam: Present: Normal External Genitalia, Cervical os Closed, Other (NO skin lesions. 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 No: Vaginal Discharge, Vaginal Bleeding, Vaginal Lesions, Adenexal Tenderness, Adenexal Mass, Cervical Motion Tendernes, Odor Back: Present: Normal Inspection. No: CVA Tenderness, Midline Tenderness Upper Extremity: Present: Normal Inspection. No: Cyanosis, Edema Lower Extremity: Present: Normal Inspection. No: Edema Neurological: Present: GCS=15, CN II-XII Intact, Speech Normal, Motor Func Grossly Intact, Gait Normal, Memory Normal Skin: Present: Warm, Dry, Normal Color. No: Rashes Psychiatric: Present: Alert, Oriented x 3, Normal Insight, Normal Concentration <Eliazar Chamorro - Last Filed: 05/19/18 01:50> Vital Signs Temp Pulse Resp BP Pulse Ox 05/18/18 23:55 98.4 F 85 18 127/67 100 <Jose Martinez - Last Filed: 05/19/18 02:43> Medical Decision Making ED Course and Treatment: 05/19/18 00:07 -labs/ua -transvaginal sonogram -Tylenol/ivf -Observe and reassess 05/19/18 01:50 -Urine hcg is positive. -Labs are non-significant -UA show +UTI -Pending sonogram and type and screen. -Case endorsed to the current ER attending Dr. Martinez for follow up on the pending labs/radiology study and he would continue the medical care. - Medication Orders Current Medication Orders: Acetaminophen (Tylenol 325mg Tab) 650 mg PO STAT STA Stop: 05/19/18 00:04 Sodium Chloride (Sodium Chloride 0.9%) 1,000 mls @ 999 mls/hr IV .Q1H1M STA Stop: 05/19/18 01:03 <Eliazar Chamorro - Last Filed: 05/19/18 01:50> - Lab Interpretations Lab Results: 05/19/18 00:20 05/19/18 00:20 Lab Results 05/19/18 00:20: Urine Color Yellow, Urine Appearance Sl cloudy, Urine pH 6.0, Ur Specific Morrison 1.015, Urine Protein Negative, Urine Glucose (UA) Negative, Urine Ketones Negative, Urine Blood Negative, Urine Nitrate Negative, Urine Bilirubin Negative, Urine Urobilinogen 0.2, Ur Leukocyte Esterase Trace H, Urine RBC 0 - 2, Urine WBC 2 - 5, Ur Epithelial Cells Many, Urine Bacteria Mod 05/19/18 00:20: WBC 11.4 H, RBC 4.65, Hgb 14.4, Hct 41.7, MCV 89.7, MCH 31.0, MCHC 34.5, RDW 12.3, Plt Count 294, MPV 10.2, Gran % 65.3, Lymph % (Auto) 26.6, [place] % (Auto) 5.8, Eos % (Auto) 2.1, Baso % (Auto) 0.2, Gran # 7.48 H, Lymph # (Auto) 3.0, [place] # (Auto) 0.7 H, Eos # (Auto) 0.2, Baso # (Auto) 0.02 05/19/18 00:20: Beta HCG, Quant 91391.00 H 05/19/18 00:20: Sodium 137, Potassium 4.2, Chloride 103, Carbon Dioxide 23, Anion Gap 16, BUN 9, Creatinine 0.5 L, Est GFR ( Amer) > 60, Est GFR (Non-Af Amer) > 60, Random Glucose 91, Calcium 9.3, Total Bilirubin 0.5, AST 30, ALT 27, Alkaline Phosphatase 66, Total Protein 7.5, Albumin 4.3, Globulin 3.2, Albumin/Globulin Ratio 1.3 - RAD Interpretation Narrative RAD Interpretations (Text): Transvaginal US: The uterus measures 9.8x5.6x7.1 cm. Anteverted uterus. Normal cervix. Intrauterine gestational sac. Gestational sac measures 2.2 cm which corresponds to an estimated gestation age of 6 weeks and 6 days. pole corresponds to an estimated gestational age of 6 weeks and 4 days. heart rate 153 beats per minute. Right ovarian corpus luteum cyst measuring 4.6 cm. Normal right ovarian flow. Non visualization of the left ovary. Impression: Single, live intrauterine gestation. Right ovarian corpus luteum cyst. Electronically signed on May 19, 2018 2:20:23 AM EST by: Ankita Rodriguez M.D., Certified by JENNIFER, MSK, Neuroradiology Radiology Orders: 05/19/18 00:07 OB TRANSVAGINAL [US] Stat Briquette Molder: Radiologist - Medication Orders Current Medication Orders: Discontinued Medications Acetaminophen (Tylenol 325mg Tab) 650 mg PO STAT STA Stop: 05/19/18 00:04 Last Admin: 05/19/18 00:19 Dose: 650 mg Sodium Chloride (Sodium Chloride 0.9%) 1,000 mls @ 999 mls/hr IV .Q1H1M STA Stop: 05/19/18 01:03 Last Admin: 05/19/18 00:19 Dose: 999 mls/hr eMAR Start Stop Document 05/19/18 00:19 AD (Rec: 05/19/18 00:19 AD [facility] [id number]) Intravenous Solution Start Date 05/19/18 Start Time 00:19 Ondansetron HCl (Zofran Inj) 4 mg IVP STAT STA Stop: 05/19/18 01:00 Last Admin: 05/19/18 01:00 Dose: 4 mg IVP Administration Document 05/19/18 01:00 AD (Rec: 05/19/18 01:22 AD [facility] [place]-ER-20) Charges for Administration # of IVP Administrations 1 <JuanJose - Last Filed: 05/19/18 02:43> - PA / SURGICAL FIRST ASSISTANT / Resident Statement LEONOR has reviewed & agrees with the documentation as recorded. <Eliazar Chamorro - Last Filed: 05/19/18 01:50> - PA / SURGICAL FIRST ASSISTANT / Resident Statement LEONOR has reviewed & agrees with the documentation as recorded. LEONOR has examined the patient and agrees with the treatment plan. <JuanJose - Last Filed: 05/19/18 02:43> Disposition/Present on Arrival - Present on Arrival Any Indicators Present on Arrival: No History of DVT/PE: No History of Uncontrolled Diabetes: No Urinary Catheter: No History of Decub. Ulcer: No History Surgical Site Infection Following: None - Disposition Have Diagnosis and Disposition been Completed?: Yes Disposition Time: 01:50 <Eliazar Chamorro - Last Filed: 05/19/18 01:50> - Present on Arrival Any Indicators Present on Arrival: No - Disposition Have Diagnosis and Disposition been Completed?: Yes Patient Plan: Discharge <JuanJose - Last Filed: 05/19/18 02:43> - Disposition Diagnosis: UTI (urinary tract infection), Abdominal pain during Disposition: HOME/ ROUTINE Patient Problems: Current Active Problems Problem Status Onset Abdominal pain during Acute UTI (urinary tract infection) Acute Condition: STABLE Discharge Instructions (ExitCare): Urinary Tract Infection, Adult (DC) Additional Instructions: Take meds as prescribed/follow up with your sales service supervisor this 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
[2018-05-19 00:47] LABS: BASO # 0.02 K/mm3 (0.0-2.0); BASO % 0.2 % (0.0-3.0); EOS # 0.2 (0.0-0.7); EOS % 2.1 % (1.5-5.0); GRAN # 7.48 (1.4-6.5); GRAN % 65.3 % (50.0-68.0); HEMOGLOBIN 14.4 g/dL (12.0-16.0); LYMPH % 26.6 % (22.0-35.0); MEAN CELL VOLUME 89.7 fl (80.0-105.0); MEAN CORPUSCULAR HGB CONC 34.5 g/dl (31.0-37.0); MEAN PLATELET VOLUME 10.2 fl (7.0-11.0); MONO # 0.7 (0.1-0.6); MONO % 5.8 % (1.0-6.0); RBC 4.65 10^6/uL (3.5-6.1); RED CELL DISTRIBUTION WIDTH 12.3 % (11.5-14.5); WHITE BLOOD COUNT 11.4 10^3/uL (4.5-11.0)
[2018-05-19 00:57] LABS: URINE BILIRUBIN NEGATIVE (NEGATIVE); URINE BLOOD NEGATIVE (NEGATIVE); URINE GLUCOSE (UA) NEGATIVE (NEGATIVE); URINE LEUKOCYTE ESTERASE TRACE Leu/uL (NEGATIVE); URINE PROTEIN NEGATIVE mg/dL (<30 mg/dL); URINE UROBILINOGEN 0.2 E.U./dL (<1 E.U./dL)
[2018-05-19 01:02] LABS: BLOOD UREA NITROGEN 9 mg/dL (7-21); CALCIUM 9.3 mg/dL (8.4-10.5); GFR NON-AFRICAN AMERICAN > 60; URINE APPEARANCE SL CLOUDY (CLEAR); URINE COLOR YELLOW (YELLOW)
[2018-05-19 01:08] LABS: ALBUMIN 4.3 g/dL (3.0-4.8); URINE BACTERIA MOD (NEG); URINE EPITHELIAL CELLS MANY /hpf (0-5); URINE RBC 0 - 2 /hpf (0-2)
[2018-05-19 01:09] LABS: ALB/GLOB RATIO 1.3 (1.1-1.8); ALT/SGPT 27 U/L (7-56); AST/SGOT 30 U/L (14-36)
[2018-05-19 02:57] VITALS: BP 123/89; PULSE 88
--- NOTE | 2018-05-19 09:52 | US ---
Date of service: 05/19/2018 PROCEDURE: OB Pelvic Ultrasound HISTORY: , left pelvic pain x 2 days LMP: 03/28/2018, suggesting 7 week 3 day gestation. COMPARISON: None available. FINDINGS: UTERUS: Gestational sac: Single intrauterine gestation. Heart rate: 153 bpm. age (Ultrasound estimated): 6 weeks 5 days as per CRL mean of 0.76 cm. Felicita-gestational hemorrhage: None appreciated. Date of delivery (Ultrasound estimated) : 01/07/2019. Uterus measures 9.8 x 5.6 x 7.1 cm. No suspicious myometrial lesion grossly evident as imaged. Gestational sac mean diameter 2.2 cm corresponding 6 weeks 6 days gestational estimate. CERVIX: Measures 3.4 cm. Long and closed. No definite cervical abnormality seen. RIGHT OVARY: Measures 6.6 x 5.6 x 5.1 cm. No mass lesion. Normal flow. Right ovary is enlarged by a moderately prominent right corpus luteum cyst measuring 4.6 x 4.6 x 3.6 cm. LEFT OVARY: Not identified. No definite suspicious left adnexal findings transabdominally or transvaginally. FREE FLUID: None. OTHER FINDINGS: None. IMPRESSION: Single viable intrauterine gestation with average ultrasonic age 6 weeks 5 days as discussed above. cardiac activity 153 beats per minute. No perigestational hemorrhage appreciable. 4.6 cm right corpus luteum cyst identified. Left ovary not identified. No definite suspicious left adnexal findings. Clinically correlate nevertheless.
== END 2018-05-19 02:56 | disposition home or self-care (01) ==
LOC: ED 23:40
DX: O23.41 Unspecified infection of urinary tract in pregnancy, first trimester (principal); Z3A.01 Less than 8 weeks gestation of pregnancy; R10.9 Unspecified abdominal pain
CPT/HCPCS: 76817; 80053; 81001; 84702; 85025; 86850; 86900; 87086; 96374; 99283; J2405; J7030

== ENCOUNTER 2018-05-31 04:33 | Emergency (ER) | payer MEDICAID ==
[2018-05-31 04:33] VITALS: BMI 32.5
[2018-05-31 05:04] VITALS: RESP 18; TEMP 98.7
[2018-05-31 05:08] VITALS: BP 109/67; PULSE 90
--- NOTE | 2018-05-31 05:24 | ED PDOC ---
Arrival/HPI - General Chief Complaint: ENT Problem Time Seen by Provider: 05/31/18 04:38 Historian: Patient - History of Present Illness Narrative History of Present Illness (Text): 05/31/18 05:21 27 year old female, whose past medical history includes asthma, depression and anxiety, presents to the emergency department with right sided neck pain for 2 days. Patient states it hurts to swallow. Patient informs she is currently . Patient denies any fever, chest pain, cough, shortness of breath, or any other complaints. Time/Duration: < week (2 days) Past Medical History - Provider Review Nursing Documentation Reviewed: Yes - Infectious Disease Hx of Infectious Diseases: None - Tetanus Immunization Tetanus Immunization: Unknown - Cardiac Hx Cardiac Disorders: No - Pulmonary Hx Respiratory Disorders: Yes Hx Asthma: Yes - Neurological Hx Neurological Disorder: No - HEENT Hx HEENT Disorder: No - Renal Hx Renal Disorder: No - Endocrine/Metabolic Hx Endocrine Disorders: No - Hematological/Oncological Hx Blood Disorders: No - Integumentary Hx Dermatological Disorder: No - Musculoskeletal/Rheumatological Hx Musculoskeletal Disorders: No - Gastrointestinal Hx Gastrointestinal Disorders: No - Genitourinary/Gynecological Hx Genitourinary Disorders: No - Psychiatric Hx Psychophysiologic Disorder: Yes Hx Anxiety: Yes Hx Depression: Yes Hx Substance Use: No - Surgical History Hx Section: Yes (x3) Hx Cholecystectomy: Yes - Anesthesia Hx Anesthesia: Yes Hx Anesthesia Reactions: No Hx Malignant Hyperthermia: No Family/Social History - Physician Review Nursing Documentation Reviewed: Yes Family/Social History: No Known Family HX Smoking Status: Light Smoker < 10 Cigarettes Daily Hx Alcohol Use: No Hx Substance Use: No Allergies/Home Meds Allergies/Adverse Reactions: Allergies No Known Allergies Allergy (Verified 05/31/18 05:03) Review of Systems - Physician Review All systems were reviewed & negative as marked: Yes - Review of Systems Constitutional: absent: Fevers ENT: Sore Throat (Hurts to swallow; right-sided neck pain) Respiratory: absent: SOB, Cough Cardiovascular: absent: Chest Pain Physical Exam Vital Signs Reviewed: Yes Vital Signs Temp Pulse Resp BP Pulse Ox 05/31/18 05:07 98.7 F 90 18 109/67 96 05/31/18 05:03 98.7 F 96 H 18 108/74 97 Temperature: Afebrile Blood Pressure: Normal Pulse: Regular Respiratory Rate: Normal Appearance: Positive for: Well-Appearing, Non-Toxic, Comfortable Pain Distress: None Mental Status: Positive for: Alert and Oriented X 3 - Systems Exam Head: Present: Atraumatic, Normocephalic Pupils: Present: PERRL Extroacular Muscles: Present: EOMI Conjunctiva: Present: Normal Mouth: Present: Moist Mucous Membranes Pharnyx: Present: ERYTHEMA (Mild erythema) Neck: Present: Normal Range of Motion Respiratory/Chest: Present: Clear to Auscultation, Good Air Exchange. No: Respiratory Distress, Accessory Muscle Use Cardiovascular: Present: Regular Rate and Rhythm, Normal S1, S2. No: Murmurs Abdomen: No: Tenderness, Distention, Peritoneal Signs Back: Present: Normal Inspection Upper Extremity: Present: Normal Inspection. No: Cyanosis, Edema Lower Extremity: Present: Normal Inspection. No: Edema Neurological: Present: GCS=15, CN II-XII Intact, Speech Normal Skin: Present: Warm, Dry, Normal Color. No: Rashes Psychiatric: Present: Alert, Oriented x 3, Normal Insight, Normal Concentration Medical Decision Making ED Course and Treatment: 05/31/18 05:26 Impression: 27 year old female presents with neck and throat pain. Plan: -- Tylenol -- Reassess and disposition Prior Visits: Notes and results from previous visits were reviewed. Progress Notes: - Scribe Statement The provider has reviewed the documentation as recorded by the Lola Vora Provider Scribe Attestation: All medical record entries made by the Scribe were at my direction and personally dictated by me. I have reviewed the chart and agree that the record accurately reflects my personal performance of the history, physical exam, medical decision making, and the department course for this patient. I have also personally directed, reviewed, and agree with the discharge instructions and disposition. Disposition/Present on Arrival - Present on Arrival Any Indicators Present on Arrival: No History of DVT/PE: No History of Uncontrolled Diabetes: No Urinary Catheter: No History of Decub. Ulcer: No History Surgical Site Infection Following: None - Disposition Have Diagnosis and Disposition been Completed?: Yes Diagnosis: Pharyngitis Disposition: HOME/ ROUTINE Disposition Time: 05:20 Condition: GOOD Discharge Instructions (ExitCare): Sore Throat, Adult (DC) Additional Instructions: [facility]NA[facility], thank you for letting us take care of you today. The emergency medical care you received today was directed at your acute symptoms. If you were prescribed any medication, please fill it and take as directed. It may take several days for your symptoms to resolve. Return to the Emergency Department if your symptoms worsen, do not improve, or if you have any other problems. Please contact your doctor or call one of the physicians/clinics you have been referred to that are listed on the Patient Visit Information form that is included in your discharge packet. Bring any paperwork you were given at discharge with you along with any medications you are taking to your follow up visit. Our treatment cannot replace ongoing medical care by a primary care provider outside of the emergency department. Thank you for allowing the [facility] team to be part of your care today. Follow up with your primary care doctor this week for re-evaluation and further management. Prescriptions: Amoxicillin 875 mg PO BID #14 tablet Referrals: Nneka Squires MD [Primary Care Provider] - Follow up with primary Forms: [employer] (Tajik)
[2018-05-31 05:38] VITALS: O2SAT 99
== END 2018-05-31 05:36 | disposition home or self-care (01) ==
LOC: ED 04:33
DX: J02.9 Acute pharyngitis, unspecified (principal); F17.210 Nicotine dependence, cigarettes, uncomplicated

== ENCOUNTER 2018-07-18 03:49 | Emergency (ER) | payer MEDICAID ==
[2018-07-18 03:49] VITALS: BMI 32.5
[2018-07-18 04:11] VITALS: RESP 18; TEMP 98.5
--- NOTE | 2018-07-18 04:16 | ED PDOC ---
Arrival/HPI - General Chief Complaint: Abnormal Skin Integrity Time Seen by Provider: 07/18/18 03:55 Historian: Patient - History of Present Illness Narrative History of Present Illness (Text): 07/18/18 04:16 Diya Sanders is a 27 year old female, currently 16 weeks , who presents to the Emergency department complaining of a raised, inflamed skin lesion to pelvic area. Patient states she shaves her pelvic area and developed a small raised skin lesion. Patient denies any discharge, fever, chills, urinary symptoms, or any other complaints. Symptom Onset: Gradual Symptom Course: Unchanged Activities at Onset: Light Context: Home Past Medical History - Provider Review Nursing Documentation Reviewed: Yes - Infectious Disease Hx of Infectious Diseases: None - Tetanus Immunization Tetanus Immunization: Unknown - Cardiac Hx Cardiac Disorders: No - Pulmonary Hx Respiratory Disorders: Yes Hx Asthma: Yes - Neurological Hx Neurological Disorder: No - HEENT Hx HEENT Disorder: No - Renal Hx Renal Disorder: No - Endocrine/Metabolic Hx Endocrine Disorders: No - Hematological/Oncological Hx Blood Disorders: No - Integumentary Hx Dermatological Disorder: No - Musculoskeletal/Rheumatological Hx Musculoskeletal Disorders: No - Gastrointestinal Hx Gastrointestinal Disorders: No - Genitourinary/Gynecological Hx Genitourinary Disorders: No - Psychiatric Hx Psychophysiologic Disorder: Yes Hx Anxiety: Yes Hx Depression: Yes Hx Substance Use: No - Surgical History Hx Section: Yes (x3) Hx Cholecystectomy: Yes - Anesthesia Hx Anesthesia: Yes Hx Anesthesia Reactions: No Hx Malignant Hyperthermia: No Family/Social History - Physician Review Nursing Documentation Reviewed: Yes Family/Social History: Unknown Family HX Smoking Status: Light Smoker < 10 Cigarettes Daily Hx Alcohol Use: No Hx Substance Use: No Allergies/Home Meds Allergies/Adverse Reactions: Allergies No Known Allergies Allergy (Verified 05/31/18 05:03) Review of Systems - Physician Review All systems were reviewed & negative as marked: Yes - Review of Systems Constitutional: Normal. absent: Fevers Eyes: Normal ENT: Normal Respiratory: Normal. absent: SOB, Cough Cardiovascular: Normal. absent: Chest Pain Gastrointestinal: Normal. absent: Abdominal Pain, Nausea, Vomiting Genitourinary Female: Normal. absent: Dysuria, Frequency, Hematuria, Urine Output Changes Musculoskeletal: Normal. absent: Back Pain, Neck Pain Skin: Skin Lesions Neurological: Normal Endocrine: Normal Hemo/Lymphatic: Normal Psychiatric: Normal Physical Exam Vital Signs Reviewed: Yes Vital Signs Temp Pulse Resp BP Pulse Ox 07/18/18 03:49 98.5 F 107 H 18 110/69 97 Temperature: Afebrile Blood Pressure: Normal Pulse: Regular Respiratory Rate: Normal Appearance: Positive for: Well-Appearing, Non-Toxic, Comfortable Pain Distress: None Mental Status: Positive for: Alert and Oriented X 3 - Systems Exam Head: Present: Atraumatic, Normocephalic Pupils: Present: PERRL Extroacular Muscles: Present: EOMI Conjunctiva: Present: Normal Mouth: Present: Moist Mucous Membranes Neck: Present: Normal Range of Motion Respiratory/Chest: Present: Clear to Auscultation, Good Air Exchange. No: Respiratory Distress, Accessory Muscle Use Cardiovascular: Present: Regular Rate and Rhythm, Normal S1, S2. No: Murmurs Abdomen: No: Tenderness, Distention, Peritoneal Signs Back: Present: Normal Inspection Upper Extremity: Present: Normal Inspection. No: Cyanosis, Edema Lower Extremity: Present: Normal Inspection. No: Edema Neurological: Present: GCS=15, CN II-XII Intact, Speech Normal Skin: Present: Warm, Dry, Normal Color, Other (Raised, inflamed ~ 2 cm cystic skin lesion non-fluctuant to left lower pelvic/pubic area). No: Rashes Psychiatric: Present: Alert, Oriented x 3, Normal Insight, Normal Concentration Medical Decision Making ED Course and Treatment: 07/18/18 04:16 Impression: 27 year old female complaining of a raised, inflamed skin lesion to the left lower pelvic area. Plan: -- Keflex -- Reassess and disposition Progress Notes: - Scribe Statement The provider has reviewed the documentation as recorded by the Lola Avelar Provider Scribe Attestation: All medical record entries made by the Scribe were at my direction and personally dictated by me. I have reviewed the chart and agree that the record accurately reflects my personal performance of the history, physical exam, medical decision making, and the department course for this patient. I have also personally directed, reviewed, and agree with the discharge instructions and disposition. Disposition/Present on Arrival - Present on Arrival Any Indicators Present on Arrival: No History of DVT/PE: No History of Uncontrolled Diabetes: No Urinary Catheter: No History of Decub. Ulcer: No History Surgical Site Infection Following: None - Disposition Have Diagnosis and Disposition been Completed?: Yes Diagnosis: Infected cyst of skin Disposition: HOME/ ROUTINE Disposition Time: 04:48 Patient Plan: Discharge Condition: GOOD Additional Instructions: Avoid irritation of the affected area/apply warm compresses/take antibiotics as prescribed/follow up with your doctor this week/any worsening symptoms return to the emergency room Prescriptions: Cephalexin [cephalexin] 500 mg PO BID #14 cap Forms: [employer] (Ind[place]ian)
[2018-07-18 05:13] VITALS: BP 110/73; PULSE 97; O2SAT 99
== END 2018-07-18 05:12 | disposition home or self-care (01) ==
LOC: ED 03:49
DX: O26.892 Other specified pregnancy related conditions, second trimester (principal); L72.9 Follicular cyst of the skin and subcutaneous tissue, unspecified; Z3A.16 16 weeks gestation of pregnancy